=== PATIENT | female | born 1940 | race Caucasian/White ===

== ENCOUNTER 2023-10-25 07:12 | Outpatient (OUT) | payer MEDICARE, OTHER, SELFPAY ==
--- NOTE | 2023-10-25 | PCN_ITS ---
CARDIAC STRESS TEST Requesting Physician: Carlos Alberto Way M.D. Procedure Date: 10/25/2023 Patient was noted to have sinus rhythm at baseline with low amplitude QRS complex. Patient was noted to have normal axis. At baseline, heart rate was 61 with a blood pressure of 146/78 mm/Hg. With infusion of the drug, she achieved a maximum heart rate of 89 beats per minute with a blood pressure that was noted to be 182/84 mm/Hg. There was no evidence of any ischemia changes noted on EKG. No AV blocks were noted and no arrhythmias seen. IMPRESSION: 1. No evidence of ischemia noted on the study on the EKG portion. 2. No evidence of AV block or arrhythmia seen during the study. 3. Nuclear portion of the stress study to be dictated separately by Radiology. LINDA
--- NOTE | 2023-10-25 07:15 | NM_ITS ---
Patient Name: SUJATA CEJA MR#: [id number] : 1940 Exam Date: 10/25/2023 Ordering Doctor: WILFRED FREED RADIOLOGY REPORT PROCEDURE: NM MARIA D PERF SPECT REST STR COMPARISON: None. INDICATIONS: DYSPNEA, FATIGUE TECHNIQUE: Exam Description: Stress/Rest one day protocol gated SPECT Rest Imagin.1 mCi Tc-99m Cardiolite IV on 10/25/2023 Stress Imaging 28.3 mCi Tc-99m Cardiolite IV on 10/25/2023 Exercise Protocol: 0.4 mg Lexiscan given IV Heart Rate (bpm): Rest: 61 Max: 89 PMHR: 63 Blood Pressure: Rest: 146/78 Max: 182/84 Symptoms: Rest and peak stress ECG findings were normal and the exercise portion of the study was normal per attending physician Dr. Freed . For more details please see separate cardiac stress test report. FINDINGS: QUALITY OF STUDY: Excellent. PERFUSION DEFECT: None. LOCATION: N/A SIZE: N/A. SEVERITY: N/A. TYPE: N/A. WALL MOTION: LV SIZE: Normal. 65 mL. TID / TCD: None; 1.0 LVEF: Normal. Calculated EF 76%. SUMMARY: Myocardial perfusion imaging study is NORMAL. CONCLUSION: 1. Normal myocardial perfusion scan with no reversible ischemia 2. Normal exercise test Dictated by: Luis Arenas MD on 10/26/2023 at 12:08 Approved by: Luis Arenas MD on 10/26/2023 at 12:09
[2023-10-25] MEDS: REGADENOSON 0.4 MG/5 ML SYRINGE 0.400000000000000022 MG IV (11:59)
== END 2023-10-25 07:13 | disposition home or self-care (01) ==
LOC: NM 07:12
PROVIDERS: PCP Family Medicine; Visit Provider Internal Medicine Cardiovascular Disease
DX: R53.83 Other fatigue (principal); R06.09 Other forms of dyspnea
CPT/HCPCS: 78452; 93017; A9500; J2785

== ENCOUNTER 2024-05-22 17:14 | Emergency (ER) | payer MEDICARE, OTHER, SELFPAY ==
[2024-05-22] VITALS (31 sets, daily range): BP systolic 158–206; BP diastolic 75–100; PULSE 65–78; TEMP 36.8; O2SAT 96–99; BMI 29.3
--- NOTE | 2024-05-22 17:34 | ECG_ITS ---
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
--- NOTE | 2024-05-22 17:34 | XR_ITS ---
The [address] [address] Patient Name: SUJATA CEJA MRN: [id number] date: 1940 Sex: F Assigned Patient Location: ER Current Patient Location: ER Accession/Order Number: [id number] Exam Date: 05/22/2024 17:55 Report Date: 05/22/2024 19:03 At the request of: KACEY ROSAS Procedure: XR chest 1V Exam: Radiographs: XR chest 1V Reason for exam: htn Comparison: None XR/XR chest 1V IMPRESSION: Minimal scarring or linear atelectasis in the right lower lung. Pacemaker. Old left rib fracture. Probable old proximal right humeral metaphysis fracture. Remainder the chest is unremarkable. Electronically authenticated by: FROY MARTINS Date: 05/22/2024 19:03
--- NOTE | 2024-05-22 17:42 | ED.GENADUL1 ---
Documented by User: Diane Ash DO 05/22/24 17:45 HPI HPI - General Adult General Chief complaint: Chest Pain Stated complaint: Blood Pressure High Time Seen by Provider: 05/22/24 17:32 Source: patient Mode of arrival: walk-in Limitations: no limitations History of Present Illness HPI narrative: Patient presents to ED for elevated blood pressure. 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 They were concerned with that so they sent her in for further evaluation. She said she had a little bit of chest pain under the left breast as well but that is resolved now. She said over the past year or more she has been having the spikes in her blood pressure and they cannot really figure out why. She said it will spike up she will take an extra Bystolic and some Lasix and then it slowly comes back down and she is fine. The processing archivist was just concerned because the reading was over 200. And she also had the mild left-sided chest pain. No nausea vomiting no dizziness no diaphoresis. Patient is alert and oriented in no acute distress. No chest pain now. She states they were also concerned because she lives in [place] and they did not want her driving without another evaluation. Related Data Home Medications ?Medication ?Instructions ?Recorded ?Confirmed atorvastatin 10 mg tablet 10 mg PO DAILY 05/22/24 05/22/24 furosemide 20 mg tablet 20 mg PO DAILY 05/22/24 05/22/24 nebivolol 5 mg tablet (Bystolic) 5 mg PO DAILY 05/22/24 05/22/24 Allergies Allergy/AdvReac Type Severity Reaction Status Date / Time fludrocortisone Allergy Severe Swelling Verified 05/22/24 17:41 of Lip/Tongue/Throat pantoprazole (From Protonix) Allergy Severe sodium Verified 05/22/24 17:41 problem Sulfa (Sulfonamide Allergy Severe Rash Verified 05/22/24 17:41 Antibiotics) nitrofurantoin (From Allergy Unknown Unknown Verified 05/22/24 17:41 Macrobid) pseudoephedrine (From Allergy Unknown Unknown Verified 05/22/24 17:41 Sudafed) Opioid HPI Opioid Management Most Recent Opioid Data: No Data to Display Review of Systems ROS Status of ROS 10 or more systems reviewed and unremarkable except as noted in history and below PFSH PFSH Social History Little interest or pleasure in doing things: not at all Feeling down, depressed, or hopeless: not at all Exam Narrative Exam Narrative: Time Seen: [] Vital Signs: [Per nurse's notes.] General: [Alert] Skin: [Warm, dry, no rash.] Head: [Normocephalic, atraumatic.] Neck: [Supple, trachea midline.] Eye: [Pupils are equal, round and reactive to light, extraocular movements are intact, normal conjunctiva.] Ears, nose, mouth and throat: oral mucosa moist. Cardiovascular: [Regular rate and rhythm, no murmur.] Respiratory: [Lungs are clear to auscultation, respirations are non-labored, breath sounds are equal.] Chest wall: [No tenderness, no deformity.] Gastrointestinal: [Soft, nontender, non distended, normal bowel sounds.] MSK: 5 out of 5 muscle strength x 4 extremities no calf pain or edema Lymphatics: [No lymphadenopathy.] Psychiatric: [Cooperative, appropriate mood & affect.] Neurological: [Alert and oriented to person, place, time, and situation, no focal neurological deficit observed.] Constitutional Vital Signs, click to edit/add: Last Vital Signs Temp 98.2 F 05/22/24 17:21 Pulse 70 05/22/24 20:30 Resp 19 05/22/24 20:30 BP 170/92 H 05/22/24 20:32 Pulse Ox 99 05/22/24 18:20 O2 Del Method Room Air 05/22/24 17:21 Course Vital Signs Vital signs: Vital Signs Temperature 98.2 F 05/22/24 17:21 Pulse Rate 78 05/22/24 17:21 Respiratory Rate 16 05/22/24 17:21 Blood Pressure 206/100 H 05/22/24 17:21 Pulse Oximetry 99 05/22/24 17:21 Oxygen Delivery Method Room Air 05/22/24 17:21 Temperature 98.2 F 05/22/24 17:21 Pulse Rate 70 05/22/24 20:30 Respiratory Rate 19 05/22/24 20:30 Blood Pressure 170/92 H 05/22/24 20:32 Pulse Oximetry 99 05/22/24 18:20 Oxygen Delivery Method Room Air 05/22/24 17:21 Medical Decision Making Lab Data Labs: Lab Results 05/22/24 05/22/24 Range/Units 17:39 18:44 WBC 6.5 (4.0-11.0) 10^3/uL RBC 4.25 (4.20-5.40) 10^6/uL Hgb 12.4 (12.0-16.0) g/dL Hct 39.0 (36.0-48.0) % MCV 91.8 (81.0-99.0) fL MCH 29.2 (26.7-34.0) pg MCHC 31.8 (29.9-35.2) g/dL RDW 13.3 (11.0-15.0) % Plt Count 186 (150-450) 10^3/uL MPV 10.2 (9.5-13.5) fL Neut % (Auto) 39.1 L (43.0-75.0) % Lymph % (Auto) 49.8 (20.5-60.0) % [place] % (Auto) 6.1 (1.7-12.0) % Eos % (Auto) 4.3 (0.9-7.0) % Baso % (Auto) 0.5 (0.2-2.0) % Neut # (Auto) 2.6 (1.4-6.5) 10^3/uL Lymph # (Auto) 3.3 (1.2-3.8) 10^3/uL [place] # (Auto) 0.4 (0.3-0.8) 10^3/uL Eos # (Auto) 0.3 (0.0-0.7) 10^3/uL Baso # (Auto) 0.0 (0.0-0.1) 10^3/uL Abs Immat Gran (auto) 0.01 (0.00-0.03) 10^3/uL Imm/Tot Granulo (auto) 0.2 (0.0-0.5) % Sodium 142 (136-145) mmol/L Potassium 3.7 (3.5-5.1) mmol/L Chloride 103 (98-107) mmol/L Carbon Dioxide 26.6 (21.0-32.0) mmol/L Anion Gap 16.1 BUN 23.0 H (7.0-18.0) mg/dL Creatinine 1.13 H (0.55-1.02) mg/dL Est GFR ( Amer) 56 L (>=60 mL/min/1.73m^2) Est GFR (Non-Af Amer) 46 L (>=60 mL/min/1.73m^2) BUN/Creatinine Ratio 20.4 Glucose 110 H (74-106) mg/dL Calcium 9.5 (8.5-10.1) mg/dL Total Bilirubin 0.5 (0.2-1.0) mg/dL AST 20 (15-37) U/L ALT 24 (14-59) U/L Alkaline Phosphatase 59 (46-116) U/L Troponin I High Sens 12.1 18.0 (4.0-51.3) pg/mL Total Protein 7.7 (6.4-8.2) g/dL Albumin 3.8 (3.4-5.0) g/dL Globulin 3.9 g/dL Albumin/Globulin Ratio 1.0 ECG Data Attestation: I personally reviewed and interpreted this ECG as follows: Interpretation: EKG INTERPRETATION Time: [] 1726 Rate: [] 68 Rhythm: _ [] Paced ST segments: _ [] No acute ST elevation or depression T waves: _ [] Ectopy: _ [] P wave/OH interval: _ [] QRS interval: _ [] QT interval: _ [] Comparison: _ [] Comparison EKG date: [] Performed by: [self] Left axis deviation Discharge Plan Discharge Chief Complaint: Chest Pain Clinical Impression: Chest pain, Hypertension Patient Disposition: Home, Self-Care Prescriptions / Home Meds: No Action atorvastatin 10 mg tablet 10 mg PO DAILY furosemide 20 mg tablet 20 mg PO DAILY nebivolol [Bystolic] 5 mg tablet 5 mg PO DAILY Print Language: Lao Instructions: Chest Pain (ED), Hypertension (ED) Additional Instructions: follow up with your doctor later this week for recheck Referrals: ANALI GIORDANO [Primary Care Provider] - 1 week Documented by User: Chriss Rowland MD 05/22/24 20:40 HPI HPI - General Adult General Chief complaint: Chest Pain Stated complaint: Blood Pressure High Time Seen by Provider: 05/22/24 17:32 Related Data Home Medications ?Medication ?Instructions ?Recorded ?Confirmed atorvastatin 10 mg tablet 10 mg PO DAILY 05/22/24 05/22/24 furosemide 20 mg tablet 20 mg PO DAILY 05/22/24 05/22/24 nebivolol 5 mg tablet (Bystolic) 5 mg PO DAILY 05/22/24 05/22/24 Allergies Allergy/AdvReac Type Severity Reaction Status Date / Time fludrocortisone Allergy Severe Swelling Verified 05/22/24 17:41 of Lip/Tongue/Throat pantoprazole (From Protonix) Allergy Severe sodium Verified 05/22/24 17:41 problem Sulfa (Sulfonamide Allergy Severe Rash Verified 05/22/24 17:41 Antibiotics) nitrofurantoin (From Allergy Unknown Unknown Verified 05/22/24 17:41 Macrobid) pseudoephedrine (From Allergy Unknown Unknown Verified 05/22/24 17:41 Sudafed) Opioid HPI Opioid Management Most Recent Opioid Data: No Data to Display PFSH PFSH Social History Little interest or pleasure in doing things: not at all Feeling down, depressed, or hopeless: not at all Exam Constitutional Vital Signs, click to edit/add: Last Vital Signs Temp 98.2 F 05/22/24 17:21 Pulse 70 05/22/24 20:30 Resp 19 05/22/24 20:30 BP 170/92 H 05/22/24 20:32 Pulse Ox 99 05/22/24 18:20 O2 Del Method Room Air 05/22/24 17:21 Course Vital Signs Vital signs: Vital Signs Temperature 98.2 F 05/22/24 17:21 Pulse Rate 78 05/22/24 17:21 Respiratory Rate 16 05/22/24 17:21 Blood Pressure 206/100 H 05/22/24 17:21 Pulse Oximetry 99 05/22/24 17:21 Oxygen Delivery Method Room Air 05/22/24 17:21 Temperature 98.2 F 05/22/24 17:21 Pulse Rate 70 05/22/24 20:30 Respiratory Rate 19 05/22/24 20:30 Blood Pressure 170/92 H 05/22/24 20:32 Pulse Oximetry 99 05/22/24 18:20 Oxygen Delivery Method Room Air 05/22/24 17:21 Medical Decision Making MDM Narrative Medical decision making narrative: care transferred at change of shift. Patient presented with chest pain that had resolved by the time she arrived to the ER. Her BP was elevated and treated. Serial troponins neg. Patient discharged home and advised to take her HS meds including pill for her BP tonight and to follow up with her doctor in the next few days for recheck Lab Data Labs: Lab Results 05/22/24 05/22/24 Range/Units 17:39 18:44 WBC 6.5 (4.0-11.0) 10^3/uL RBC 4.25 (4.20-5.40) 10^6/uL Hgb 12.4 (12.0-16.0) g/dL Hct 39.0 (36.0-48.0) % MCV 91.8 (81.0-99.0) fL MCH 29.2 (26.7-34.0) pg MCHC 31.8 (29.9-35.2) g/dL RDW 13.3 (11.0-15.0) % Plt Count 186 (150-450) 10^3/uL MPV 10.2 (9.5-13.5) fL Neut % (Auto) 39.1 L (43.0-75.0) % Lymph % (Auto) 49.8 (20.5-60.0) % [place] % (Auto) 6.1 (1.7-12.0) % Eos % (Auto) 4.3 (0.9-7.0) % Baso % (Auto) 0.5 (0.2-2.0) % Neut # (Auto) 2.6 (1.4-6.5) 10^3/uL Lymph # (Auto) 3.3 (1.2-3.8) 10^3/uL [place] # (Auto) 0.4 (0.3-0.8) 10^3/uL Eos # (Auto) 0.3 (0.0-0.7) 10^3/uL Baso # (Auto) 0.0 (0.0-0.1) 10^3/uL Abs Immat Gran (auto) 0.01 (0.00-0.03) 10^3/uL Imm/Tot Granulo (auto) 0.2 (0.0-0.5) % Sodium 142 (136-145) mmol/L Potassium 3.7 (3.5-5.1) mmol/L Chloride 103 (98-107) mmol/L Carbon Dioxide 26.6 (21.0-32.0) mmol/L Anion Gap 16.1 BUN 23.0 H (7.0-18.0) mg/dL Creatinine 1.13 H (0.55-1.02) mg/dL Est GFR ( Amer) 56 L (>=60 mL/min/1.73m^2) Est GFR (Non-Af Amer) 46 L (>=60 mL/min/1.73m^2) BUN/Creatinine Ratio 20.4 Glucose 110 H (74-106) mg/dL Calcium 9.5 (8.5-10.1) mg/dL Total Bilirubin 0.5 (0.2-1.0) mg/dL AST 20 (15-37) U/L ALT 24 (14-59) U/L Alkaline Phosphatase 59 (46-116) U/L Troponin I High Sens 12.1 18.0 (4.0-51.3) pg/mL Total Protein 7.7 (6.4-8.2) g/dL Albumin 3.8 (3.4-5.0) g/dL Globulin 3.9 g/dL Albumin/Globulin Ratio 1.0 Discharge Plan Discharge Chief Complaint: Chest Pain Clinical Impression: Chest pain, Hypertension Patient Disposition: Home, Self-Care Prescriptions / Home Meds: No Action atorvastatin 10 mg tablet 10 mg PO DAILY furosemide 20 mg tablet 20 mg PO DAILY nebivolol [Bystolic] 5 mg tablet 5 mg PO DAILY Print Language: Lao Instructions: Chest Pain (ED), Hypertension (ED) Additional Instructions: follow up with your doctor later this week for recheck Referrals: ANALI GIORDANO [Primary Care Provider] - 1 week
[2024-05-22 17:49] LABS: Basophils Percent Auto 0.5 % (0.2-2.0); Eosinophils Absolute Auto 0.3 10^3/uL (0.0-0.7); Eosinophils Percent Auto 4.3 % (0.9-7.0); Hemoglobin 12.4 g/dL (12.0-16.0); Immature Granulocytes Abs Auto 0.01 10^3/uL (0.00-0.03); Immature Granulocytes Pct Auto 0.2 % (0.0-0.5); Lymphocytes Absolute Auto 3.3 10^3/uL (1.2-3.8); Lymphocytes Percent Auto 49.8 % (20.5-60.0); Mean Corpuscular HGB Conc 31.8 g/dL (29.9-35.2); Mean Corpuscular Hemoglobin 29.2 pg (26.7-34.0); Mean Corpuscular Volume 91.8 fL (81.0-99.0); Mean Platelet Volume 10.2 fL (9.5-13.5); Monocytes Absolute Auto 0.4 10^3/uL (0.3-0.8); Monocytes Percent Auto 6.1 % (1.7-12.0); Neutrophils Absolute Auto 2.6 10^3/uL (1.4-6.5); Neutrophils Percent Auto 39.1 % (43.0-75.0); Platelet Count 186 10^3/uL (150-450); Red Blood Count 4.25 10^6/uL (4.20-5.40); Red Cell Distribution Width 13.3 % (11.0-15.0); White Blood Count 6.5 10^3/uL (4.0-11.0)
[2024-05-22 18:04] LABS: Alanine Aminotransferase 24 U/L (14-59); Albumin Level 3.8 g/dL (3.4-5.0); Alkaline Phosphatase 59 U/L (46-116); Anion Gap 16.1; Aspartate Amino Transferase 20 U/L (15-37); BUN Creatinine Ratio 20.4; Bilirubin Total 0.5 mg/dL (0.2-1.0); Calcium 9.5 mg/dL (8.5-10.1); Carbon Dioxide 26.6 mmol/L (21.0-32.0); Chloride 103 mmol/L (98-107); Estimated GFR (African America 56 (>=60 mL/min/1.73m^2); Estimated GFR (Non-African Ame 46 (>=60 mL/min/1.73m^2); Globulin 3.9 g/dL; Glucose 110 mg/dL (74-106); Potassium 3.7 mmol/L (3.5-5.1); Sodium 142 mmol/L (136-145); Total Protein 7.7 g/dL (6.4-8.2); Troponin I High Sensitivity 12.1 pg/mL (4.0-51.3)
[2024-05-22] MEDS: CLONIDINE HCL 0.1 MG TABLET PO (19:46)
== END 2024-05-22 20:58 | disposition home or self-care (01) ==
PROVIDERS: Emergency Provider Emergency Medicine; PCP Family Medicine
DX: I10 Essential (primary) hypertension (principal); R07.9 Chest pain, unspecified
CPT/HCPCS: 36415; 71045; 80053; 84484; 85025; 93005; 99285